=== PATIENT | female | born 1965 | race Caucasian/White ===

== ENCOUNTER 2025-01-10 08:07 | Inpatient (IN) | payer MEDICARE, OTHER ==
[2025-01-10] MEDS ORDERED: IPRATROPIUM-ALBUTEROL 3 ML NEB INHALATION PRN (08:29)
[2025-01-10] MEDS ORDERED: PNEUMONIA PROTOCOL UTILIZED 1 EACH MISC PO PRN (08:35)
[2025-01-10 09:11] LABS: ABG Base Excess 6.9 mmol/L; ABG HCO3 33 mmol/L (21-25); ABG PCO2 53 mmHg (35-45); ABG PH 7.41 (7.35-7.45); ABG TCO2 35 mmol/L (19-24); Allen Test Performed? Yes
[2025-01-10 09:12] LABS: ABG PO2 56 mmHg (83-108)
--- NOTE | 2025-01-10 09:16 | ED ---
General Adult HPI - General Chief complaint: Shortness of Breath Stated complaint: SOB Time Seen by Provider: 01/10/25 08:28 Source: patient, EMS, RN notes reviewed, old records reviewed Mode of arrival: EMS Limitations: no limitations - History of Present Illness Initial comments: Patient is a 59-year-old female who was transferred from [facility] over concern for worsening hypoxic respiratory failure secondary to pneumonia and COPD exacerbation. Apparently patient presented with worsening shortness of breath. Was recently admitted in [place] and intubated. Went home and was doing well until she smoked a cigarette which prompted her COPD to flareup. Is chronically on 3 L nasal cannula of oxygen at home. Workup at the other [facility] does show a properly compensated chronic hypercapnia, leukocytosis that is elevated, and a chest x-ray that showed right middle lobe consolidation concerning for pneumonia. Patient has a chronic large hernia, and CT angiogram was obtained to evaluate for PE which was negative for PE. Patient was holding in the ER when she became slightly more confused. Patient was transitioned to BiPAP and there ICU recommended transfer to a higher level of care for further monitoring. Patient presents mentating well, no confusion, saturating well. We did transition her to her baseline 3 L nasal cannula and she tolerated it well. Has no acute complaints. - Related Data Home Medications Medication Instructions Recorded Confirmed Albuterol Nebulized [Ventolin 2.5 mg INHALATION RT-Q4H PRN 12/30/24 12/30/24 Nebulized] Albuterol Sulfate [Ventolin HFA] 2 puff INHALATION RT-QID PRN 12/30/24 12/30/24 Atorvastatin [Lipitor] 20 mg PO DAILY 12/30/24 12/30/24 Budesonide/Formoterol Fumarate 2 puff INHALATION RT-BID 12/30/24 12/30/24 [Symbicort 160-4.5 Mcg Inhaler] EPINEPHrine (Auto Inject) [Epipen] 0.3 mg IM ONCE PRN 12/30/24 12/30/24 Escitalopram [Lexapro] 10 mg PO DAILY 12/30/24 12/30/24 Escitalopram [Lexapro] 20 mg PO DAILY 12/30/24 12/30/24 Nicotine 21Mg/24Hr Patch [Habitrol] 1 patch TRANSDERM DAILY 12/30/24 12/30/24 Oxybutynin Chloride [oxyBUTYnin 15 mg PO DAILY 12/30/24 12/30/24 chloride ER] Paliperidone Palmitate [Invega 410 mg IM Q84D 12/30/24 12/30/24 Trinza] lamoTRIgine [LaMICtal] 200 mg PO DAILY 12/30/24 12/30/24 metFORMIN HCL 1,000 mg PO BID 12/30/24 12/30/24 Allergies Allergy/AdvReac Type Severity Reaction Status Date / Time carvedilol [From Coreg] Allergy Swelling Verified 12/30/24 11:15 spinach Allergy Swelling Verified 12/30/24 11:15 adhesive tape AdvReac Itching Verified 12/30/24 11:15 enalaprilat [From Vasotec] AdvReac Unknown Verified 12/30/24 11:15 isosorbide AdvReac Unknown Verified 12/30/24 11:15 niacin AdvReac Unknown Verified 12/30/24 11:15 [From Niaspan Extended-Release] Review of Systems ROS Statement: Those systems with pertinent positive or pertinent negative responses have been documented in the HPI. Review of Systems: CONST: Denies fever EYES: Denies blurry vision ENT: Denies nasal congestion C/V: Denies Chest pain RESP: Denies shortness of breath GI: Denies abdominal pain : Denies dysuria SKIN: Denies rash. MSK: Denies joint pain. NEURO: Denies headache ROS Other: All systems not noted in ROS Statement are negative. Past Medical History Past Medical History: Heart Failure, COPD, Diabetes Mellitus, Pneumonia Additional Past Medical History / Comment(s): pt was hospitalized in [place] 12/09/24-12/19/24 and was ventilated due to COPD and PNA. History of Any Multi-Drug Resistant Organisms: None Reported Past Surgical History: No Surgical Hx Reported Past Anesthesia/Blood Transfusion Reactions: No Reported Reaction Additional Past Anesthesia/Blood Transfusion Reaction / Comment(s): pt states she received blood once years ago without issue and had general anesthesia once without issues. Past Psychological History: Depression Smoking Status: Former smoker Past Alcohol Use History: None Reported Past Drug Use History: None Reported General Exam - General Exam Comments Initial Comments: General: Appears in no acute distress. HEAD: Normal with no signs of head trauma. EYES: PERRLA, EOMI, conjunctiva normal, no discharge. ENT: Hearing grossly intact, normal oropharynx. RESPIRATORY: Coarse breath sounds bilaterally with wheezing. No significant increased work of breathing. No hypoxia on baseline 3 L nasal cannula oxygen. C/V: Regular rate and rhythm. S1 and S2 auscultated, no edema, peripheral pulses 2+ and intact throughout ABD: Abd is soft, nontender, nondistended EXT: Normal range of motion, no obvious deformity SKIN: No rashes or lesions observed on exposed skin. NEURO: Alert and oriented x 4. Cranial nerves II-XII intact. No focal sensory or strength deficits. No lethargy. Limitations: no limitations Course Vital Signs 01/10/25 01/10/25 01/10/25 08:09 08:15 09:37 Temperature 97.8 F Pulse Rate 101 H Respiratory 18 24 Rate Blood Pressure 106/70 O2 Sat by Pulse 93 L Oximetry Fraction of 30 Inspired Oxygen (FIO2) 01/10/25 01/10/25 01/10/25 10:02 10:09 10:25 Temperature Pulse Rate 84 86 86 Respiratory 24 Rate Blood Pressure 115/69 O2 Sat by Pulse 98 Oximetry Fraction of Inspired Oxygen (FIO2) 01/10/25 11:45 Temperature Pulse Rate 94 Respiratory 20 Rate Blood Pressure 114/76 O2 Sat by Pulse 95 Oximetry Fraction of Inspired Oxygen (FIO2) Medical Decision Making - Medical Decision Making Was pt. sent in by a medical professional or institution ([facility]enan, FILTER TIP CATCHER, urgent care, hospital, or group home...) When possible be specific @ -Sent from [facility] for evaluation at higher level of care for acute on chronic hypoxic respiratory failure secondary to COPD and what appears to be pneumonia. Did you speak to anyone other than the patient for history (EMS, parent, family, police, friend...)? What history was obtained from this source @ -No Did you review nursing and triage notes (agree or disagree)? Why? @ -I reviewed and agree with nursing and triage notes Were old charts reviewed (outside hosp., previous admission, EMS record, old EKG, old radiological studies, urgent care reports/EKG's, group home records)? Report findings @ -Reviewed charts from [facility] which shows the pneumonia on x-ray interpretation, as well as what appears to be adequate ABGs obtained at the outside facility. Patient eventually was transitioned to BiPAP and transferred here. Differential Diagnosis (chest pain, altered mental status, abdominal pain women, abdominal pain men, vaginal bleeding, weakness, fever, dyspnea, syncope, headache, dizziness, GI bleed, back pain, seizure, CVA, palpatations, mental health, musculoskeletal)? @ -Differential Dyspnea: Coronary syndrome, arrhythmia, tamponade, asthma, COPD, pulmonary embolism, pneumonia, pneumothorax, pulmonary effusion, anaphylaxis, diabetic ketoacidosis, flailed chest, pulmonary contusion, diaphragmatic rupture, anemia, neuromuscular, this is not meant to be an all-inclusive list. EKG interpreted by me (3pts min.). @ -As above X-rays interpreted by me (1pt min.). @ -Chest x-ray shows the right-sided infiltrate with a small right pleural effusion. CT interpreted by me (1pt min.). @ -None done U/S interpreted by me (1pt. min.). @ -None done What testing was considered but not performed or refused? (CT, X-rays, U/S, labs)? Why? @ -None What meds were considered but not given or refused? Why? @ -None Did you discuss the management of the patient with other professionals (professionals i.e. , PA, FILTER TIP CATCHER, lab, RT, psych nurse, social work manager, probe operator, teacher, disciplinary hearing officer, director case)? Give summary @ -I spoke with the admitting provider, Dr. Bowen who accepted the admission. Consult placed to pulmonology. Was smoking cessation discussed for >3mins.? @ -No Was critical care preformed (if so, how long)? @ -No Were there social determinants of health that impacted care today? How? (Homelessness, low income, unemployed, alcoholism, drug addiction, transpo rtation, low edu. Level, literacy, decrease access to med. care, fpc, rehab)? @ -No Was there de-escalation of care discussed even if they declined (Discuss DNR or withdrawal of care, Hospice)? DNR status @ -No What co-morbidities impacted this encounter? (DM, HTN, Smoking, COPD, CAD, Cancer, CVA, ARF, Chemo, Hep., AIDS, mental health diagnosis, sleep apnea, morbid obesity)? @ -COPD on baseline 3 L nasal cannula oxygen. Was patient admitted / discharged? Hospital course, mention meds given and route, prescriptions, significant lab abnormalities, going to OR and other pertinent info. @ -59-year-old female presents emergency department with acute on chronic hypoxic respiratory failure. Transferred from [facility] for worsening mental status and was placed on BiPAP. Patient is mentating well at this time and has been throughout her transfer here. Vitals are within acceptable limits. She was transitioned to 3 L nasal cannula and we will continue to monitor. She has no mental deficits at this time. Will repeat labs, initiate antibiotic therapy for pneumonia that was not started based on chest x-ray read. Will repeat chest x-ray as well. She was in agreement this plan. Will continue with IV steroids, IV antibiotics, IV fluids, breathing treatments. BiPAP as needed. EKG shows no signs of acute ischemia.Patient's labs returned remarkable for leukocytosis of 16. ABG shows an appropriately compensated hypercapnia. Patient is saturating well on her baseline 3 L nasal cannula oxygen. Chest x- ray redemonstrates the [place]. Patient was started on IV fluids as well as antibiotics. Will continue with IV steroids, breathing treatments. Does not meet sepsis criteria. She was in agreement this plan. I spoke with the admitting provider, Dr. Bowen who accepted the admission. Consult placed to pulmonology. Undiagnosed new problem with uncertain prognosis? @ -No Drug Therapy requiring intensive monitoring for toxicity (Heparin, Nitro, Insulin, Cardizem)? @ -No Were any procedures done? @ -No Diagnosis/symptom? @ -Acute on chronic hypoxic respiratory failure likely secondary to COPD exacerbation and pneumonia Acute, or Chronic, or Acute on Chronic? @ -Acute on chronic Uncomplicated (without systemic symptoms) or Complicated (systemic symptoms)? @ -Complicated Side effects of treatment? @ -No Exacerbation, Progression, or Severe Exacerbation? @ -No Poses a threat to life or bodily function? How? (Chest pain, [place], [place], pneumonia, PE, COPD, DKA, ARF, appy, cholecystitis, CVA, Diverticulitis, Homicidal, Suicidal, threat to staff... and all critical care pts) @ -Yes - Lab Data Result diagrams: 01/10/25 09:13 01/10/25 09:13 Lab Results 01/10/25 01/10/25 01/10/25 Range/Units 09:06 09: 09:13 WBC 16.59 H (4.50-10.00) 10*3/uL RBC 4.47 (4.10-5.20) 10*6/uL Hgb 13.7 (12.0-15.0) g/dL Hct 43.2 (37.2-46.3) % MCV 96.6 (80.0-97.0) fL MCH 30.6 (27.0-32.0) pg MCHC 31.7 L (32.0-37.0) g/dL Plt Count 330 (140-440) 10*3/uL MPV 8.1 L (9.5-12.2) fL Immature Gran % (Auto) 0.7 % Neutrophils % 92.7 % Lymphocytes % 4.1 % Monocytes % 2.3 % Eosinophils % 0.0 % Basophils % 0.2 % Immature Gran # 0.11 H (0.00-0.04) 10*3/uL Neutrophils # 15.39 H (1.80-7.70) 10*3/uL Lymphocytes # 0.68 L (0.90-5.00) 10*3/uL Monocytes # 0.38 (0.20-1.00) 10*3/uL Eosinophils # 0.00 L (0.04-0.35) 10*3/uL Basophils # 0.03 (0.00-0.10) 10*3/uL PT 10.0 (10.0-12.5) sec INR 0.9 (<1.2) APTT 23.5 (22.0-30.0) sec Sample Site rbrach ABG pH 7.41 (7.35-7.45) ABG pCO2 53 H (35-45) mmHg ABG pO2 56 L* (83-108) mmHg ABG HCO3 33 H (21-25) mmol/L ABG Total CO2 35 H (19-24) mmol/L ABG O2 Saturation 90.0 L (94-97) % ABG Base Excess 6.9 mmol/L Puneet Test Yes Hemoglobin 13.1 (11.4-16.0) gm/dL FiO2 32 % Sodium (137-145) mmol/L Potassium (3.5-5.1) mmol/L Chloride (98-107) mmol/L Carbon Dioxide (22-30) mmol/L Anion Gap mmol/L BUN (7-17) mg/dL Creatinine (0.52-1.04) mg/dL Est GFR (CKD-EPI)AfAm (>60 ml/min/1.73 sqM) Est GFR (CKD-EPI)NonAf (>60 ml/min/1.73 sqM) Glucose (74-99) mg/dL Plasma Lactic Acid Aaron (0.7-2.0) mmol/L Calcium (8.4-10.2) mg/dL Magnesium (1.6-2.3) mg/dL Total Bilirubin (0.2-1.3) mg/dL AST (14-36) U/L ALT (4-34) U/L Alkaline Phosphatase (38-126) U/L Total Protein (6.3-8.2) g/dL Albumin (3.5-5.0) g/dL 01/10/25 01/10/25 Range/Units 09:13 09:13 WBC (4.50-10.00) 10*3/uL RBC (4.10-5.20) 10*6/uL Hgb (12.0-15.0) g/dL Hct (37.2-46.3) % MCV (80.0-97.0) fL MCH (27.0-32.0) pg MCHC (32.0-37.0) g/dL Plt Count (140-440) 10*3/uL MPV (9.5-12.2) fL Immature Gran % (Auto) % Neutrophils % % Lymphocytes % % Monocytes % % Eosinophils % % Basophils % % Immature Gran # (0.00-0.04) 10*3/uL Neutrophils # (1.80-7.70) 10*3/uL Lymphocytes # (0.90-5.00) 10*3/uL Monocytes # (0.20-1.00) 10*3/uL Eosinophils # (0.04-0.35) 10*3/uL Basophils # (0.00-0.10) 10*3/uL PT (10.0-12.5) sec INR (<1.2) APTT (22.0-30.0) sec Sample Site ABG pH (7.35-7.45) ABG pCO2 (35-45) mmHg ABG pO2 (83-108) mmHg ABG HCO3 (21-25) mmol/L ABG Total CO2 (19-24) mmol/L ABG O2 Saturation (94-97) % ABG Base Excess mmol/L Puneet Test Hemoglobin (11.4-16.0) gm/dL FiO2 % Sodium 139 (137-145) mmol/L Potassium 4.6 (3.5-5.1) mmol/L Chloride 99 (98-107) mmol/L Carbon Dioxide 33 H (22-30) mmol/L Anion Gap 7 mmol/L BUN 12 (7-17) mg/dL Creatinine 0.52 (0.52-1.04) mg/dL Est GFR (CKD-EPI)AfAm >90 (>60 ml/min/1.73 sqM) Est GFR (CKD-EPI)NonAf >90 (>60 ml/min/1.73 sqM) Glucose 209 H (74-99) mg/dL Plasma Lactic Acid Aaron 1.1 (0.7-2.0) mmol/L Calcium 9.4 (8.4-10.2) mg/dL Magnesium 2.2 (1.6-2.3) mg/dL Total Bilirubin 0.3 (0.2-1.3) mg/dL AST 14 (14-36) U/L ALT 17 (4-34) U/L Alkaline Phosphatase 95 (38-126) U/L Total Protein 7.3 (6.3-8.2) g/dL Albumin 4.1 (3.5-5.0) g/dL - EKG Data -: EKG Interpreted by Me EKG Comments: 12-lead Electrocardiogram Interpretation Note EKG was reviewed and interpreted by myself. 12-lead ECG performed at 0854 is interpreted by me as revealing normal sinus rhythm at a rate of 87 beats per minute. Left axis deviation. WA interval is 179 ms, QRS durations 105 ms, QTc is 436 ms.. There were no ST or T wave abnormalities to suggest myocardial ischemia or injury. R wave progression across the precordium was satisfactory. By my interpretation this EKG is non-diagnostic for acute ischemia. Disposition Clinical Impression: COPD (chronic obstructive pulmonary disease), Pneumonia, Hypoxic respiratory failure Disposition: ADMITTED IP TO THIS HOSP Condition: Stable Time of Disposition: 10:40
[2025-01-10] MEDS: methylPREDNISolone SOD SUCCI 40 MG/ML 1 ML VIAL IV SCH (09:21)
[2025-01-10] MEDS: LACTATED RINGERS 1,000 ML IV SCH (09:22)
[2025-01-10] MEDS: PIPERACILLIN-TAZOBACTAM 3.375 GM in SODIUM CHLORIDE 0.9% 100 ML IVPB STA (09:22)
[2025-01-10 09:29] LABS: Basophils # (A) 0.03 10*3/uL (0.00-0.10); Basophils % (A) 0.2 %; HCT 43.2 % (37.2-46.3); HGB 13.7 g/dL (12.0-15.0); Lymphocytes # (A) 0.68 10*3/uL (0.90-5.00); Lymphocytes % (A) 4.1 %; MCH 30.6 pg (27.0-32.0); MCHC 31.7 g/dL (32.0-37.0); MCV 96.6 fL (80.0-97.0); Mean Platelet Volume 8.1 fL (9.5-12.2); Monocytes # (A) 0.38 10*3/uL (0.20-1.00); Monocytes % (A) 2.3 %; Neutrophils # (A) 15.39 10*3/uL (1.80-7.70); Neutrophils % (A) 92.7 %; Platelet Count 330 10*3/uL (140-440); RBC 4.47 10*6/uL (4.10-5.20); RDW 14.5 % (11.5-14.5); WBC 16.59 10*3/uL (4.50-10.00)
[2025-01-10 09:35] LABS: INR 0.9 (<1.2); Partial Thromboplastin Time 23.5 sec (22.0-30.0)
[2025-01-10] MEDS: SODIUM CHLORIDE 0.9% 1,000 ML IV SCH (09:35)
[2025-01-10 09:38] LABS: ALT 17 U/L (4-34); AST 14 U/L (14-36); African American GFR (CKD) >90 (>60 ml/min/1.73 sqM); Albumin 4.1 g/dL (3.5-5.0); Alkaline Phosphatase 95 U/L (38-126); Anion Gap 7 mmol/L; Blood Urea Nitrogen 12 mg/dL (7-17); Calcium 9.4 mg/dL (8.4-10.2); Carbon Dioxide 33 mmol/L (22-30); Chloride 99 mmol/L (98-107); Glucose 209 mg/dL (74-99); Magnesium 2.2 mg/dL (1.6-2.3); Non-African American GFR(CKD) >90 (>60 ml/min/1.73 sqM); Potassium 4.6 mmol/L (3.5-5.1); Sodium 139 mmol/L (137-145); Total Bilirubin 0.3 mg/dL (0.2-1.3); Total Protein 7.3 g/dL (6.3-8.2)
[2025-01-10] MEDS: IPRATROPIUM-ALBUTEROL 3 ML NEB INHALATION STA (10:00)
--- NOTE | 2025-01-10 10:04 | XR ---
EXAMINATION TYPE: XR chest 1V portable DATE OF EXAM: 01/10/2025 9:51 AM COMPARISON: None. CLINICAL INDICATION: Female, 59 years old with history of coreen, TECHNIQUE: XR chest 1V portable view(s) obtained. FINDINGS: The heart size is normal. The pulmonary vasculature is normal. Right renal lobe infiltrate is present. Correlate for pneumonia. Follow-up is recommended minimal rig ht pleural effusion is likely present. IMPRESSION: 1. Right renal lobe infiltrate. Correlate for pneumonia. 2. Small right pleural effusion [facility], , 01/10/2025 10:01 AM
[2025-01-10] MEDS: IPRATROPIUM-ALBUTEROL 3 ML NEB INHALATION SCH (10:09)
[2025-01-10] MEDS: AZITHROMYCIN 500 MG in SODIUM CHLORIDE 0.9% 250 ML IVPB STA (10:20)
[2025-01-10] MEDS ORDERED: NALOXONE 0.4 MG/ML 1 ML VIAL IV PRN (10:43)
[2025-01-10] MEDS ORDERED: ONDANSETRON 4 MG/2 ML VIAL IVP PRN (10:43)
[2025-01-10] MEDS: PIPERACILLIN-TAZOBACTAM 3.375 GM in SODIUM CHLORIDE 0.9% 100 ML IVPB SCH (16:49)
[2025-01-10 19:36] LABS: Glucose,Whole Blood 296 mg/dL (70-110)
[2025-01-10 20:00] LABS: Glucose,Whole Blood 291 mg/dL (70-110)
--- NOTE | 2025-01-10 21:15 | P.HPIM ---
History of Present Illness H&P Date: 01/10/25 Chief Complaint: Short of breath This is a pleasant 59-year-old patient who follows with Dr. Pérez. Chronic medical conditions include CHF, COPD, diabetes, hyperlipidemia, hypertension, depression. Home oxygen 3 L, recurrent angioedema Patient was short time and stopped smoking. Recently discharged from hospital about 10 days ago. Patient went back to start smoking. Yesterday became increasingly short of breath. Wheezing. No chills. Vivian tired. Had gone to see her son. He said he looks she looks miserable. They checked a home pulse ox showing 62%. Patient sent down to [facility] and from that she was sent down here. Patient was recently admitted to [facility] where she was intubated. Does have 3 uses oxygen at home. At [facility] showed she was in hypercapnia. X-ray also suggesting pneumonia. CT angiogram was negative for PE. As she became a bit confused she was put on a BiPAP. Review of systems: GEN.: Tired EYES: None HEENT: [As above NECK: None RESPIRATORY: As above CARDIOVASCULAR: None GASTROINTESTINAL: None GENITOURINARY: None MUSCULOSKELETAL: None LYMPHATICS: None HEMATOLOGICAL: None PSYCHIATRY: Bit anxious NEUROLOGICAL: None Social history: Lives alone. Patient smoked for about 45 years Physical examination: VITAL SIGNS: 97.8, 78, 20, 121 x 74, 94% on 3 to GENERAL: BMI 26.1, sitting bed, a bit short of breath EYES: Pupils equal. Conjunctiva jeni l. HEENT: External appearance of nose and ears normal, oral cavity grossly normal. No teeth NECK: JVD not raised; masses not palpable. HEART: First and second heart sounds are normal; no edema. LUNGS: Respiratory rate increased, diminished breath sound, not able to speak in full sentence ABDOMEN: Soft, nontender, liver spleen not palpable, no masses palpable. PSYCH: Alert and oriented x3; mood and affect anxious MUSCULOSKELETAL:No Clubbing/cyanosis;muscles-grossly intact NEUROLOGICAL: Cranial nerves grossly intact; no facial asymmetry, power and sensation grossly intact. LYMPHATICS: No lymph nodes palpable in the axilla and neck INVESTIGATIONS, reviewed in the clinical context: January 10: White count 16.5 hemoglobin 13.7 platelets 330 sodium 139 potassium 4.6 creatinine 0.52 blood glucose 209 ABG: [id number] PO256 pH 7.41 Chest x-ray film personally reviewed by me-possible right lower lobe infiltrate EKG tracing personally reviewed by me-normal sinus rhythm Assessment plan: - Acute COPD exacerbation in a current smoker, causing hypoxia and hypercapnia DuoNeb. Solu-Medrol. Oxygen - Acute hypoxic hypercapnic respiratory failure from COPD exacerbation Patient initially was on a BiPAP. Now down to 3 L. - Right lower lobe pneumonia suspect gram-negative organism. Patient was recently in the hospital intubated IV Zosyn -History of recurrent angioedema -Diabetes mellitus type 2 on oral hypoglycemic, uncontrolled with hyperglycemia secondary steroids Metformin 1000 mg twice daily. Follow Accu-Cheks with sliding scale - Chronic urine incontinence Oxybutynin 15 mg a day - Hyperlipidemia Lipitor 20 mg a day - Chronic nicotine dependence cigarette smoker Nicotine patch - Depression Lamictal. Invega, Lexapro, - Full code Care was discussed with the patient. Past Medical History Past Medical History: Heart Failure, COPD, Diabetes Mellitus, Pneumonia Additional Past Medical History / Comment(s): pt was hospitalized in [place] 07/24-12/19/24 and was ventilated due to COPD and PNA. History of Any Multi-Drug Resistant Organisms: None Reported Past Surgical History: No Surgical Hx Reported Past Anesthesia/Blood Transfusion Reactions: No Reported Reaction Additional Past Anesthesia/Blood Transfusion Reaction / Comment(s): pt states she received blood once years ago without issue and had general anesthesia once without issues. Past Psychological History: Depression Smoking Status: Former smoker Past Alcohol Use History: None Reported Past Drug Use History: None Reported Medications and Allergies Home Medications Medication Instructions Recorded Confirmed Type Albuterol Nebulized [Ventolin 2.5 mg INHALATION RT-Q4H PRN 12/30/24 01/10/25 History Nebulized] Albuterol Sulfate [Ventolin HFA] 2 puff INHALATION RT-QID PRN 12/30/24 01/10/25 History Atorvastatin [Lipitor] 20 mg PO DAILY 12/30/24 01/10/25 History Budesonide/Formoterol Fumarate 2 puff INHALATION RT-BID 12/30/24 01/10/25 History [Symbicort 160-4.5 Mcg Inhaler] EPINEPHrine (Auto Inject) [Epipen] 0.3 mg IM ONCE PRN 12/30/24 01/10/25 History Escitalopram [Lexapro] 10 mg PO DAILY 12/30/24 01/10/25 History Escitalopram [Lexapro] 20 mg PO DAILY 12/30/24 01/10/25 History Nicotine 21Mg/24Hr Patch [Habitrol] 1 patch TRANSDERM DAILY 12/30/24 01/10/25 History Oxybutynin Chloride [oxyBUTYnin 15 mg PO DAILY 12/30/24 01/10/25 History chloride ER] Paliperidone Palmitate [Invega 410 mg IM Q84D 12/30/24 01/10/25 History Trinza] lamoTRIgine [LaMICtal] 200 mg PO DAILY 12/30/24 01/10/25 History metFORMIN HCL 1,000 mg PO BID 12/30/24 01/10/25 History Doxycycline Monohydrate 100 mg PO BID 01/10/25 01/10/25 History amLODIPine [Norvasc] 5 mg PO DIRECTED 01/10/25 01/10/25 History Allergies Allergy/AdvReac Type Severity Reaction Status Date / Time carvedilol [From Coreg] Allergy Swelling Verified 01/10/25 15:39 spinach Allergy Swelling Verified 01/10/25 15:39 adhesive tape AdvReac Itching Verified 01/10/25 15:39 enalaprilat [From Vasotec] AdvReac Unknown Verified 01/10/25 15:39 isosorbide AdvReac Unknown Verified 01/10/25 15:39 niacin AdvReac Unknown Verified 01/10/25 15:39 [From Niaspan Extended-Release] Physical Exam Vitals: Vital Signs Temp Pulse Resp BP Pulse Ox FiO2 01/10/25 18:00 97.8 F 78 20 121/74 94 L 01/10/25 15:40 94 01/10/25 15:29 98 01/10/25 13:19 92 20 140/86 96 01/10/25 11:45 94 20 114/76 95 01/10/25 10:25 86 24 115/69 98 01/10/25 10:09 86 01/10/25 10:02 84 01/10/25 09:37 30 01/10/25 08:15 24 01/10/25 08:09 97.8 F 101 H 18 106/70 93 L Intake and Output 01/10/25 01/10/25 01/10/25 06:59 14:59 22:59 Other: Weight 62.596 kg Results CBC & Chem 7: 01/10/25 09:13 01/10/25 09:13 Labs: Abnormal Lab Results - Last 24 Hours (Table) 01/10/25 01/10/25 01/10/25 Range/Units 09:06 09:13 09:13 WBC 16.59 H (4.50-10.00) 10*3/uL MCHC 31.7 L (32.0-37.0) g/dL MPV 8.1 L (9.5-12.2) fL Immature Gran # 0.11 H (0.00-0.04) 10*3/uL Neutrophils # 15.39 H (1.80-7.70) 10*3/uL Lymphocytes # 0.68 L (0.90-5.00) 10*3/uL Eosinophils # 0.00 L (0.04-0.35) 10*3/uL ABG pCO2 53 H (35-45) mmHg ABG pO2 56 L* (83-108) mmHg ABG HCO3 33 H (21-25) mmol/L ABG Total CO2 35 H (19-24) mmol/L ABG O2 Saturation 90.0 L (94-97) % Carbon Dioxide 33 H (22-30) mmol/L Glucose 209 H (74-99) mg/dL POC Glucose (mg/dL) (70-110) mg/dL 01/10/25 01/10/25 Range/Units 19:34 19:58 WBC (4.50-10.00) 10*3/uL MCHC (32.0-37.0) g/dL MPV (9.5-12.2) fL Immature Gran # (0.00-0.04) 10*3/uL Neutrophils # (1.80-7.70) 10*3/uL Lymphocytes # (0.90-5.00) 10*3/uL Eosinophils # (0.04-0.35) 10*3/uL ABG pCO2 (35-45) mmHg ABG pO2 (83-108) mmHg ABG HCO3 (21-25) mmol/L ABG Total CO2 (19-24) mmol/L ABG O2 Saturation (94-97) % Carbon Dioxide (22-30) mmol/L Glucose (74-99) mg/dL POC Glucose (mg/dL) 296 H 291 H (70-110) mg/dL
[2025-01-10] MEDS: BUDESONIDE 1 MG/2 ML NEBU INHALATION SCH (21:26)
[2025-01-10] MEDS: FORMOTEROL FUMARATE 20 MCG/2 ML NEBU INHALATION SCH (21:26)
[2025-01-10] MEDS: metFORMIN 500 MG TAB PO SCH (21:37)
[2025-01-11 05:50] LABS: Glucose,Whole Blood 203 mg/dL (70-110)
--- NOTE | 2025-01-11 07:31 | XR ---
EXAMINATION TYPE: XR chest 2V DATE OF EXAM: 01/11/2025 6:56 AM COMPARISON: Chest radiographs from 01/10/2025 CLINICAL INDICATION: Female, 59 years old with history of pneumonia; [facility] TECHNIQUE: XR chest 2V Frontal and lateral views of the chest. FINDINGS: Lungs/Pleura: Right lower lung airspace opacity/consolidation. There is no evidence of pleural effusi on, left focal consolidation, or pneumothorax. Pulmonary vascularity: Unremarkable. Heart/mediastinum: Cardiomediastinal silhouette is unremarkable. Musculoskeletal: No acute osseous pathology. IMPRESSION: Right lower lobe airspace opacities/consolidation [facility], , 01/11/2025 7:29 AM
[2025-01-11] MEDS: lamoTRIgine 100 MG TAB PO SCH (07:58)
[2025-01-11] MEDS: AZITHROMYCIN 500 MG in SODIUM CHLORIDE 0.9% 250 ML IVPB SCH (07:58)
[2025-01-11] MEDS: NICOTINE 21MG/24HR PATCH TRANSDERM SCH (07:58)
[2025-01-11] MEDS: ESCITALOPRAM 20 MG TAB PO SCH (07:58)
[2025-01-11] MEDS: ESCITALOPRAM 10 MG TAB PO SCH (07:59)
[2025-01-11] MEDS: ENOXAPARIN 40 MG/0.4 ML SYRINGE SQ SCH (07:59)
[2025-01-11] MEDS: OXYBUTYNIN 15 MG TAB.ER.24 PO SCH (07:59)
[2025-01-11] MEDS: ATORVASTATIN 20 MG TAB PO SCH (07:59)
[2025-01-11 08:31] LABS: Basophils # (A) 0.02 10*3/uL (0.00-0.10); Basophils % (A) 0.1 %; HCT 39.6 % (37.2-46.3); HGB 12.6 g/dL (12.0-15.0); Lymphocytes # (A) 1.25 10*3/uL (0.90-5.00); Lymphocytes % (A) 8.1 %; MCH 31.3 pg (27.0-32.0); MCHC 31.8 g/dL (32.0-37.0); MCV 98.5 fL (80.0-97.0); Mean Platelet Volume 8.2 fL (9.5-12.2); Monocytes # (A) 0.73 10*3/uL (0.20-1.00); Monocytes % (A) 4.7 %; Neutrophils # (A) 13.35 10*3/uL (1.80-7.70); Neutrophils % (A) 86.1 %; Platelet Count 304 10*3/uL (140-440); RBC 4.02 10*6/uL (4.10-5.20); RDW 14.4 % (11.5-14.5)
[2025-01-11 08:49] LABS: ALT 15 U/L (4-34); AST 14 U/L (14-36); African American GFR (CKD) >90 (>60 ml/min/1.73 sqM); Albumin 3.6 g/dL (3.5-5.0); Alkaline Phosphatase 62 U/L (38-126); Anion Gap 7 mmol/L; Blood Urea Nitrogen 14 mg/dL (7-17); Carbon Dioxide 34 mmol/L (22-30); Chloride 98 mmol/L (98-107); Glucose 179 mg/dL (74-99); Non-African American GFR(CKD) >90 (>60 ml/min/1.73 sqM); Potassium 4.5 mmol/L (3.5-5.1); Sodium 139 mmol/L (137-145); Total Bilirubin 0.3 mg/dL (0.2-1.3); Total Protein 6.5 g/dL (6.3-8.2)
[2025-01-11] MEDS: IPRATROPIUM-ALBUTEROL 3 ML NEB INHALATION SCH (09:08)
[2025-01-11] MEDS ORDERED: RX INFO: IV CONTRAST WAS GIVEN 1 EACH MISC MISCELLANE PRN (10:17)
--- NOTE | 2025-01-11 12:12 | CT ---
EXAMINATION TYPE: CT chest w con DATE OF EXAM: 01/11/2025 11:54 AM COMPARISON: Chest radiograph CT thorax 01/10/2025 CLINICAL INDICATION: Female, 59 years old with history of Abnormal CXR; PHH, abnormal cxr TECHNIQUE: Multiple axial images were obtained through the chest. Sagittal and coronal reformats were created for review. MIP was performed on a separate workstation. Contrast used:100 mL of Isovue 300 with IV Contrast (None if empty) Oral contrast used: (None if empty) CT DLP: 260.3 mGycm, Automated exposure control for dose reduction was used. FINDINGS: LUNGS/ PLEURA: Elevated right diaphragm with hernia extending anteriorly along the anterior abdominal wall. No airspace consolidation. Moderate centrilobular emphysema changes in the lung apices. No foc al consolidation, pneumothorax or pleural effusion. AIRWAY: Patent and unremarkable. HEART: Size within normal limits. No significant coronary artery calcifications. MEDIASTINUM: No gross evidence of adenopathy. VASCULATURE: No aortic aneurysm. MUSCULOSKELETAL: Mild disc degeneration changes are present throughout the thoracolumbar spine second gomez to osteophyte formation and facet joint arthropathy. SOFT TISSUES/LYMPH NODES: Unremarkable. LOWER NECK: No significant findings. UPPER ABDOMEN: Large hernia containing loops of colon that extends up to the anterior upper abdomen i nto the mediastinum to the right of the right epicardial fat and into the right chest. Scattered hepa tic probable cysts. IMPRESSION: 1. No change from CT one day prior. Large hernia containing loops of colon that extends up to the an terior upper abdomen into the mediastinum to the right of the right epicardial fat and into the right chest. 2. No evidence for airspace disease. 3. Moderate emphysema changes. [facility], , 01/11/2025 12:10 PM
--- NOTE | 2025-01-11 13:59 | P.CNPUL ---
History of Present Illness Consult date: 01/11/25 Requesting physician: Jaiden Bowen Reason for consult: COPD Chief complaint: Shortness of breath History of present illness: This is a 59-year-old female, known history of COPD, congestive heart failure, type 2 diabetes, hypertension, depression, on home O2 as liters per minute, patient had recent evaluation in the ER for angioedema. Patient is a smoker, presented to the ER last night with worsening symptoms of shortness of breath, cough, and wheezing. Chest x-ray raised the possibility of pneumonia, however after reviewing the chest x-ray, it seems to me that there is a cavitary like lesion, hence I recommended a CT of the chest for further evaluation of that right lower lobe. Findings on the CT of the chest ruled out pneumonia, there is clearly evidence of large hernia containing loops of colon that extends up to the anterior upper abdomen into the mediastinum to the right of the right epicardial fat and into the right chest. These are findings of hernia not findings of pneumonia. And not findings of lung abscess. Nonetheless patient is being treated for symptoms of COPD exacerbation. Apparently patient was recently in [place] and she had an episode of acute exacerbation of COPD required intubation and mechanical ventilation. When she was seen yesterday at [facility], her chest x-ray raised the possibility of pneumonia hence she was transferred to [facility]. Initially she was on BiPAP, when I saw the patient she was on nasal cannula and did not seem to be in distress. Review of Systems REVIEW OF SYSTEMS: CONSTITUTIONAL: No fever no chills no weight loss EYES: Negative. ENT: Negative. CARDIAC: Negative. PULMONARY: Cough wheezing shortness of breath GI: Negative. GENITOURINARY: Negative. MUSCULOSKELETAL: Negative. SKIN: Negative. NEUROPSYCH: Negative. ENDOCRINE: Negative. HEMATOLOGIC: Negative. Past Medical History Past Medical History: Heart Failure, COPD, Diabetes Mellitus, Pneumonia Additional Past Medical History / Comment(s): pt was hospitalized in [place] 12/09/24-12/19/24 and was ventilated due to COPD and PNA. History of Any Multi-Drug Resistant Organisms: None Reported Past Surgical History: No Surgical Hx Reported Past Anesthesia/Blood Transfusion Reactions: No Reported Reaction Additional Past Anesthesia/Blood Transfusion Reaction / Comment(s): pt states she received blood once years ago without issue and had general anesthesia once without issues. Past Psychological History: Depression Smoking Status: Former smoker Past Alcohol Use History: None Reported Past Drug Use History: None Reported Medications and Allergies Home Medications Medication Instructions Recorded Confirmed Type Albuterol Nebulized [Ventolin 2.5 mg INHALATION RT-Q4H PRN 12/30/24 01/10/25 History Nebulized] Albuterol Sulfate [Ventolin HFA] 2 puff INHALATION RT-QID PRN 12/30/24 01/10/25 History Atorvastatin [Lipitor] 20 mg PO DAILY 12/30/24 01/10/25 History Budesonide/Formoterol Fumarate 2 puff INHALATION RT-BID 12/30/24 01/10/25 History [Symbicort 160-4.5 Mcg Inhaler] EPINEPHrine (Auto Inject) [Epipen] 0.3 mg IM ONCE PRN 12/30/24 01/10/25 History Escitalopram [Lexapro] 10 mg PO DAILY 12/30/24 01/10/25 History Escitalopram [Lexapro] 20 mg PO DAILY 12/30/24 01/10/25 History Nicotine 21Mg/24Hr Patch [Habitrol] 1 patch TRANSDERM DAILY 12/30/24 01/10/25 H istory Oxybutynin Chloride [oxyBUTYnin 15 mg PO DAILY 12/30/24 01/10/25 History chloride ER] Paliperidone Palmitate [Invega 410 mg IM Q84D 12/30/24 01/10/25 History Trinza] lamoTRIgine [LaMICtal] 200 mg PO DAILY 12/30/24 01/10/25 History metFORMIN HCL 1,000 mg PO BID 12/30/24 01/10/25 History Doxycycline Monohydrate 100 mg PO BID 01/10/25 01/10/25 History amLODIPine [Norvasc] 5 mg PO DIRECTED 01/10/25 01/10/25 History Allergies Allergy/AdvReac Type Severity Reaction Status Date / Time carvedilol [From Coreg] Allergy Swelling Verified 01/10/25 15:39 spinach Allergy Swelling Verified 01/10/25 15:39 adhesive tape AdvReac Itching Verified 01/10/25 15:39 enalaprilat [From Vasotec] AdvReac Unknown Verified 01/10/25 15:39 isosorbide AdvReac Unknown Verified 01/10/25 15:39 niacin AdvReac Unknown Verified 01/10/25 15:39 [From Niaspan Extended-Release] Physical Exam Vitals: Vital Signs Temp Pulse Pulse Resp BP BP Pulse Ox 01/11/25 12:38 102 H 01/11/25 12:21 106 H 01/11/25 12:17 98.4 F 106 H 20 111/66 96 01/11/25 09:41 102 H 01/11/25 09:23 102 H 01/11/25 09:21 100 01/11/25 09:09 102 H 97 01/11/25 07:43 97.9 F 85 18 145/80 94 L 01/11/25 04:04 97.9 F 77 18 116/54 97 01/11/25 00:40 97.7 F 84 18 116/67 98 01/10/25 21:10 97.7 F 81 18 146/89 97 01/10/25 18:00 97.8 F 78 20 121/74 94 L 01/10/25 15:40 94 01/10/25 15:29 98 Intake and Output 01/10/25 01/11/25 01/11/25 22:59 06:59 14:59 Intake Total 260 Output Total 400 Balance -140 Intake: IV 20 Invasive Line 2 10 Invasive Line 3 10 Oral 240 Output: Urine 400 Other: Voiding Method Bedside Commode Bedside Commode Bedside Commode # Voids 2 1 # Bowel Movements 1 Weight 62.596 kg 69 kg General: Reveals a 59-year-old female in no distress Skin: Skin is warm and dry and no rashes or lesions are noted. Eye: Pupils are equal, round and reactive to light, extra-ocular movements are intact; there is normal conjunctiva bilaterally. Ears, nose, mouth and throat: There are moist mucous membranes and no oral lesions. Neck: The neck is supple, there is no tenderness or JVD. Cardiovascular: There is a regular rate and rhythm. No murmur, rub or gallop is appreciated. Respiratory: Wheezing on forced expiratory maneuver, diminished breath sounds at the right base Gastrointestinal: Soft, non-distended, non-tender abdomen without masses or organomegaly noted. There is no rebound or guarding present. Bowel sounds are unremarkable. Back: There is no tenderness to palpation in the midline. There is no obvious deformity. Musculoskeletal: Normal ROM, no tenderness, There is no pedal edema. There is no calf tenderness or swelling. No cords were appreciated. Neurological: CN II-XII intact, Cranial nerves III through XII are intact. There are no obvious motor or sensory deficits. Coordination appears grossly intact. Speech is normal. Psychiatric: Cooperative, appropriate mood & affect, normal judgment. Results - Laboratory Findings CBC and BMP: 01/11/25 08:19 01/11/25 08:19 ABG ABG pH 7.41 (7.35-7.45) 01/10/25 09:06 ABG pCO2 53 mmHg (35-45) H 01/10/25 09:06 ABG pO2 56 mmHg (83-108) L* 01/10/25 09:06 ABG O2 Saturation 90.0 % (94-97) L 01/10/25 09:06 PT/INR, D-dimer PT 10.0 sec (10.0-12.5) 01/10/25 09:13 INR 0.9 (<1.2) 01/10/25 09:13 Abnormal lab findings: Abnormal Labs 01/10/25 01/10/25 01/10/25 09:06 09:13 09:13 WBC 16.59 H RBC MCV MCHC 31.7 L MPV 8.1 L Immature Gran # 0.11 H Neutrophils # 15.39 H Lymphocytes # 0.68 L Eosinophils # 0.00 L ABG pCO2 53 H ABG pO2 56 L* ABG HCO3 33 H ABG Total CO2 35 H ABG O2 Saturation 90.0 L Carbon Dioxide 33 H Glucose 209 H POC Glucose (mg/dL) 01/10/25 01/10/25 01/11/25 19:34 19:58 05:48 WBC RBC MCV MCHC MPV Immature Gran # Neutrophils # Lymphocytes # Eosinophils # ABG pCO2 ABG pO2 ABG HCO3 ABG Total CO2 ABG O2 Saturation Carbon Dioxide Glucose POC Glucose (mg/dL) 296 H 291 H 203 H 01/11/25 01/11/25 08:19 08:19 WBC 15.50 H RBC 4.02 L MCV 98.5 H MCHC 31.8 L MPV 8.2 L Immature Gran # 0.15 H Neutrophils # 13.35 H Lymphocytes # Eosinophils # 0.00 L ABG pCO2 ABG pO2 ABG HCO3 ABG Total CO2 ABG O2 Saturation Carbon Dioxide 34 H Glucose 179 H POC Glucose (mg/dL) - Diagnostic Findings CT scan - chest: image reviewed (As noted in HPI) Assessment and Plan Assessment: Impression: Acute hypoxic respiratory failure Acute on chronic hypoxic and hypercapnic respiratory failure No evidence of pneumonia, patient has hiatal hernia as noted on CT of the chest 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 Continue methylprednisone Resume home meds Continue antibiotics for now for her COPD exacerbation but again the patient does not have clear-cut evidence of pneumonia Continue oxygen and titrate accordingly Counseled regarding smoking cessation Will continue to follow Time with Patient: Greater than 30
--- NOTE | 2025-01-11 18:07 | P.PN ---
Progress Note - Text Progress Note Date: 01/11/25 Chief Complaint: Short of breath This is a pleasant 59-year-old patient who follows with Dr. Pérez. Chronic medical conditions include CHF, COPD, diabetes, hyperlipidemia, hypertension, depression. Home oxygen 3 L, recurrent angioedema Patient was short time and stopped smoking. Recently discharged from hospital about 10 days ago. Patient went back to start smoking. Yesterday became increasingly short of breath. Wheezing. No chills. [place] tired. Had gone to see her son. He said he looks she looks miserable. They checked a home pulse ox showing 62%. Patient sent down to [facility] and from that she was sent down here. Patient was recently admitted to [facility] where she was intubated. Does have 3 uses oxygen at home. At [facility] showed she was in hypercapnia. X-ray also suggesting pneumonia. CT angiogram was negative for PE. As she became a bit confused she was put on a BiPAP. January 11: Some improvement in shortness of breath. Congested cough. On 3 to his nasal cannula. Had 100% for lunch. Told to sit up in the chair. Incentive spirometry. No pneumonia. Only acute bronchitis. Stop Zosyn Active Medications Acetaminophen (Acetaminophen Tab 325 Mg Tab) 650 mg PO Q6HR PRN PRN Reason: Mild Pain or Fever > 100.5 Albuterol/Ipratropium (Ipratropium-Albuterol 3 Ml Neb) 3 ml INHALATION RT-Q2H PRN PRN Reason: Shortness Of Breath Or Wheezing Albuterol/Ipratropium (Ipratropium-Albuterol 3 Ml Neb) 3 ml INHALATION RT-QID [facility] Last Admin: 01/11/25 16:46 Dose: 3 ml Atorvastatin Calcium (Atorvastatin 20 Mg Tab) 20 mg PO DAILY [facility] Last Admin: 01/11/25 07:59 Dose: 20 mg Budesonide (Budesonide 1 Mg/2 Ml Nebu) 1 mg INHALATION RT-BID [facility] Last Admin: 01/11/25 09:08 Dose: 1 mg Enoxaparin Sodium (Enoxaparin 40 Mg/0.4 Ml Syringe) 40 mg SQ DAILY [facility] Last Admin: 01/11/25 07:59 Dose: 40 mg Epinephrine HCl (Epinephrine 1 Mg/Ml 1 Ml Vial) 0.3 mg IM ONCE PRN PRN Reason: Anaphylaxis Escitalopram Oxalate (Escitalopram 10 Mg Tab) 10 mg PO DAILY [facility] Last Admin: 01/11/25 07:59 Dose: 10 mg Escitalopram Oxalate (Escitalopram 20 Mg Tab) 20 mg PO DAILY [facility] Last Admin: 01/11/25 07:58 Dose: 20 mg Formoterol Fumarate (Formoterol Fumarate 20 Mcg/2 Ml Nebu) 20 mcg INHALATION RT-BID [facility] Last Admin: 01/11/25 09:08 Dose: 20 mcg Azithromycin 500 mg/ Sodium (Chloride) 250 mls @ 250 mls/hr IVPB DAILY [facility]; Protocol Stop: 01/12/25 09:59 Last Admin: 01/11/25 07:58 Dose: 250 mls/hr Piperacillin Sod/Tazobactam (Sod 3.375 gm/ Sodium Chloride) 100 mls @ 25 mls/hr IVPB Q8HR [facility]; Protocol Stop: 01/15/25 15:59 Last Admin: 01/11/25 16:38 Dose: 25 mls/hr Lactated Ringer's (Lactated Ringers) 1,000 mls @ 130 mls/hr IV .Q7H42M [facility] Last Admin: 01/11/25 16:38 Dose: Not Given Lamotrigine (Lamotrigine 100 Mg Tab) 200 mg PO DAILY [facility] Last Admin: 01/11/25 07:58 Dose: 200 mg Metformin HCl (Metformin 500 Mg Tab) 1,000 mg PO BID-W/MEALS [facility] Last Admin: 01/11/25 16:38 Dose: 1,000 mg Methylprednisolone Sodium Succinate (Methylprednisolone Sod Succi 40 Mg/Ml 1 Ml Vial) 40 mg IV Q8HR [facility] Last Admin: 01/11/25 16:38 Dose: 40 mg Miscellaneous Information (Pneumonia Protocol Utilized 1 Each Misc) 1 each PO ONCE PRN PRN Reason: Per Protocol Miscellaneous Information (Rx Info: Iv Contrast Was Given 1 Each Misc) 1 each MISCELLANE DAILY PRN PRN Reason: Per Protocol Stop: 01/13/25 10:17 Naloxone HCl (Naloxone 0.4 Mg/Ml 1 Ml Vial) 0.2 mg IV Q2M PRN PRN Reason: Opioid Reversal Nicotine (Nicotine 21mg/24hr Patch) 1 patch TRANSDERM DAILY [facility] Last Admin: 01/11/25 07:58 Dose: 1 patch Ondansetron HCl (Ondansetron 4 Mg/2 Ml Vial) 4 mg IVP Q8HR PRN PRN Reason: Nausea And Vomiting Oxybutynin Chloride (Oxybutynin 15 Mg Tab.Er.24) 15 mg PO DAILY [facility] Last Admin: 01/11/25 07:59 Dose: 15 mg Social history: Lives alone. Patient smoked for about 45 years Physical examination: VITAL SIGNS: 98.4, 106, 20, 111 x 66, 96% 3 GENERAL: BMI 26.1, sitting bed, a bit short of breath EYES: Pupils equal. Conjunctiva jeni l. HEENT: External appearance of nose and ears normal, oral cavity grossly normal. No teeth NECK: JVD not raised; masses not palpable. HEART: First and second heart sounds are normal; no edema. LUNGS: Respiratory rate increased, diminished breath sound, ABDOMEN: Soft, nontender, liver spleen not palpable, no masses palpable. PSYCH: Alert and oriented x3; mood and affect anxious MUSCULOSKELETAL:No Clubbing/cyanosis;muscles-grossly intact INVESTIGATIONS, reviewed in the clinical context: CT chest: Large hernia containing loops of colon that extends up to the anterior upper abdomen into the mediastinum to the right of the right epicardial fat and into the right chest. No evidence of airspace disease. January 11: White count 15.5 hemoglobin 12.6 platelets 304 creatinine 0.54 procalcitonin less than 0.20 January 10: White count 16.5 hemoglobin 13.7 platelets 330 sodium 139 potassium 4.6 creatinine 0.52 blood glucose 209 ABG: [id number] pH 7.41 Chest x-ray film personally reviewed by me-possible right lower lobe infiltrate EKG tracing personally reviewed by me-normal sinus rhythm Assessment plan: - Acute COPD exacerbation in a current smoker, causing hypoxia and hypercapnia DuoNeb. Solu-Medrol. Oxygen - Acute tracheobronchitis Continue azithromycin - Acute hypoxic hypercapnic respiratory failure from COPD exacerbation Patient initially was on a BiPAP. Now down to 3 L. -No pneumonia. As per CT chest. Procalcitonin less than 0.20 Stop Zosyn -History of recurrent angioedema -Diabetes mellitus type 2 on oral hypoglycemic, uncontrolled with hyperglycemia secondary steroids Metformin 1000 mg twice daily. Follow Accu-Cheks with sliding scale - Chronic urine incontinence Oxybutynin 15 mg a day - Hyperlipidemia Lipitor 20 mg a day - Chronic nicotine dependence cigarette smoker Nicotine patch - Depression Lamictal. Invega, Lexapro, - Full code Up in chair. Add incentive spirometry. Continue current treatment plan. Past Medical History Past Medical History: Heart Failure, COPD, Diabetes Mellitus, Pneumonia Additional Past Medical History / Comment(s): pt was hospitalized in [place] 12/09/24-12/19/24 and was ventilated due to COPD and PNA. History of Any Multi-Drug Resistant Organisms: None Reported Past Surgical History: No Surgical Hx Reported Past Anesthesia/Blood Transfusion Reactions: No Reported Reaction Additional Past Anesthesia/Blood Transfusion Reaction / Comment(s): pt states she received blood once years ago without issue and had general anesthesia once without issues. Past Psychological History: Depression Smoking Status: Former smoker Past Alcohol Use History: None Reported Past Drug Use History: None Reported
[2025-01-11] MEDS: clonazePAM 1 MG TAB PO PRN (18:32)
[2025-01-11 20:08] LABS: Glucose,Whole Blood 215 mg/dL (70-110)
[2025-01-12 05:58] LABS: Glucose,Whole Blood 191 mg/dL (70-110)
--- NOTE | 2025-01-12 09:57 | P.PN ---
Progress Note - Text Progress Note Date: 01/12/25 Chief Complaint: Short of breath This is a pleasant 59-year-old patient who follows with Dr. Pérez. Chronic medical conditions include CHF, COPD, diabetes, hyperlipidemia, hypertension, depression. Home oxygen 3 L, recurrent angioedema Patient was short time and stopped smoking. Recently discharged from hospital about 10 days ago. Patient went back to start smoking. Yesterday became increasingly short of breath. Wheezing. No chills. [place] tired. Had gone to see her son. He said he looks she looks miserable. They checked a home pulse ox showing 62%. Patient sent down to [facility] and from that she was sent down here. Patient was recently admitted to [facility] where she was intubated. Does have 3 uses oxygen at home. At [facility] showed she was in hypercapnia. X-ray also suggesting pneumonia. CT angiogram was negative for PE. As she became a bit confused she was put on a BiPAP. January 11: Some improvement in shortness of breath. Congested cough. On 3 to his nasal cannula. Had 100% for lunch. Told to sit up in the chair. Incentive spirometry. No pneumonia. Only acute bronchitis. Stop Zosyn January 12: Breathing better. Has been up in chair. She feels about 50% better. Would like to stay for 1 more day. Increase activity. Stop LR. Active Medications Acetaminophen (Acetaminophen Tab 325 Mg Tab) 650 mg PO Q6HR PRN PRN Reason: Mild Pain or Fever > 100.5 Albuterol/Ipratropium (Ipratropium-Albuterol 3 Ml Neb) 3 ml INHALATION RT-Q2H PRN PRN Reason: Shortness Of Breath Or Wheezing Albuterol/Ipratropium (Ipratropium-Albuterol 3 Ml Neb) 3 ml INHALATION RT-QID [facility] Last Admin: 01/11/25 16:46 Dose: 3 ml Atorvastatin Calcium (Atorvastatin 20 Mg Tab) 20 mg PO DAILY [facility] Last Admin: 01/11/25 07:59 Dose: 20 mg Budesonide (Budesonide 1 Mg/2 Ml Nebu) 1 mg INHALATION RT-BID [facility] Last Admin: 01/11/25 09:08 Dose: 1 mg Enoxaparin Sodium (Enoxaparin 40 Mg/0.4 Ml Syringe) 40 mg SQ DAILY [facility] Last Admin: 01/11/25 07:59 Dose: 40 mg Epinephrine HCl (Epinephrine 1 Mg/Ml 1 Ml Vial) 0.3 mg IM ONCE PRN PRN Reason: Anaphylaxis Escitalopram Oxalate (Escitalopram 10 Mg Tab) 10 mg PO DAILY [facility] Last Admin: 01/11/25 07:59 Dose: 10 mg Escitalopram Oxalate (Escitalopram 20 Mg Tab) 20 mg PO DAILY [facility] Last Admin: 01/11/25 07:58 Dose: 20 mg Formoterol Fumarate (Formoterol Fumarate 20 Mcg/2 Ml Nebu) 20 mcg INHALATION RT-BID [facility] Last Admin: 01/11/25 09:08 Dose: 20 mcg Azithromycin 500 mg/ Sodium (Chloride) 250 mls @ 250 mls/hr IVPB DAILY [facility]; Protocol Stop: 01/12/25 09:59 Last Admin: 01/11/25 07:58 Dose: 250 mls/hr Piperacillin Sod/Tazobactam (Sod 3.375 gm/ Sodium Chloride) 100 mls @ 25 mls/hr IVPB Q8HR [facility]; Protocol Stop: 01/15/25 15:59 Last Admin: 01/11/25 16:38 Dose: 25 mls/hr Lactated Ringer's (Lactated Ringers) 1,000 mls @ 130 mls/hr IV .Q7H42M [facility] Last Admin: 01/11/25 16:38 Dose: Not Given Lamotrigine (Lamotrigine 100 Mg Tab) 200 mg PO DAILY [facility] Last Admin: 01/11/25 07:58 Dose: 200 mg Metformin HCl (Metformin 500 Mg Tab) 1,000 mg PO BID-W/MEALS [facility] Last Admin: 01/11/25 16:38 Dose: 1,000 mg Methylprednisolone Sodium Succinate (Methylprednisolone Sod Succi 40 Mg/Ml 1 Ml Vial) 40 mg IV Q8HR [facility] Last Admin: 01/11/25 16:38 Dose: 40 mg Miscellaneous Information (Pneumonia Protocol Utilized 1 Each Misc) 1 each PO ONCE PRN PRN Reason: Per Protocol Miscellaneous Information (Rx Info: Iv Contrast Was Given 1 Each Misc) 1 each MISCELLANE DAILY PRN PRN Reason: Per Protocol Stop: 01/13/25 10:17 Naloxone HCl (Naloxone 0.4 Mg/Ml 1 Ml Vial) 0.2 mg IV Q2M PRN PRN Reason: Opioid Reversal Nicotine (Nicotine 21mg/24hr Patch) 1 patch TRANSDERM DAILY [facility] Last Admin: 01/11/25 07:58 Dose: 1 patch Ondansetron HCl (Ondansetron 4 Mg/2 Ml Vial) 4 mg IVP Q8HR PRN PRN Reason: Nausea And Vomiting Oxybutynin Chloride (Oxybutynin 15 Mg Tab.Er.24) 15 mg PO DAILY [facility] Last Admin: 01/11/25 07:59 Dose: 15 mg Social history: Lives alone. Patient smoked for about 45 years Physical examination: VITAL SIGNS: 97.5, 77, 18, 07/31/1929 GENERAL: BMI 26.1, sitting bed, breathing improving EYES: Pupils equal. Conjunctiva jeni l. HEENT: External appearance of nose and ears normal, oral cavity grossly normal. No teeth NECK: JVD not raised; masses not palpable. HEART: First and second heart sounds are normal; no edema. LUNGS: Respiratory rate increased, diminished breath sound, ABDOMEN: Soft, nontender, liver spleen not palpable, no masses palpable. PSYCH: Alert and oriented x3; mood and affect anxious MUSCULOSKELETAL:No Clubbing/cyanosis;muscles-grossly intact INVESTIGATIONS, reviewed in the clinical context: CT chest: Large hernia containing loops of colon that extends up to the anterior upper abdomen into the mediastinum to the right of the right epicardial fat and into the right chest. No evidence of airspace disease. January 11: White count 15.5 hemoglobin 12.6 platelets 304 creatinine 0.54 procalcitonin less than 0.20 January 10: White count 16.5 hemoglobin 13.7 platelets 330 sodium 139 potassium 4.6 creatinine 0.52 blood glucose 209 ABG: [id number] PO256 pH 7.41 Chest x-ray film personally reviewed by me-possible right lower lobe infiltrate EKG tracing personally reviewed by me-normal sinus rhythm Assessment plan: - Acute COPD exacerbation in a current smoker, causing hypoxia and hypercapnia: Improving DuoNeb. Solu-Medrol. Oxygen Will switch to oral prednisone tomorrow - Acute tracheobronchitis Continue azithromycin - Acute hypoxic hypercapnic respiratory failure from COPD exacerbation Patient initially was on a BiPAP. Now down to 3 L. -No pneumonia. As per CT chest. Procalcitonin less than 0.20 Stop Zosyn -History of recurrent angioedema -Diabetes mellitus type 2 on oral hypoglycemic, uncontrolled with hyperglycemia secondary steroids Metformin 1000 mg twice daily. Follow Accu-Cheks with sliding scale - Chronic urine incontinence Oxybutynin 15 mg a day - Hyperlipidemia Lipitor 20 mg a day - Chronic nicotine dependence cigarette smoker Nicotine patch - Depression Lamictal. Invega, Lexapro, - Full code Improving. Increase activity. Switch to oral prednisone tomorrow. Hopefully discharge tomorrow Past Medical History Past Medical History: Heart Failure, COPD, Diabetes Mellitus, Pneumonia Additional Past Medical History / Comment(s): pt was hospitalized in [place] 12/09/24-12/19/24 and was ventilated due to COPD and PNA. History of Any Multi-Drug Resistant Organisms: None Reported Past Surgical History: No Surgical Hx Reported Past Anesthesia/Blood Transfusion Reactions: No Reported Reaction Additional Past Anesthesia/Blood Transfusion Reaction / Comment(s): pt states she received blood once years ago without issue and had general anesthesia once without issues. Past Psychological History: Depression Smoking Status: Former smoker Past Alcohol Use History: None Reported Past Drug Use History: None Reported
[2025-01-12 11:43] LABS: Glucose,Whole Blood 100 mg/dL (70-110)
--- NOTE | 2025-01-12 15:39 | P.PN ---
Subjective Progress Note Date: 01/12/25 This is a 59-year-old female, known history of COPD, congestive heart failure, type 2 diabetes, hypertension, depression, on home O2 as liters per minute, patient had recent evaluation in the ER for angioedema. Patient is a smoker, presented to the ER last night with worsening symptoms of shortness of breath, cough, and wheezing. Chest x-ray raised the possibility of pneumonia, however after reviewing the chest x-ray, it seems to me that there is a cavitary like lesion, hence I recommended a CT of the chest for further evaluation of that right lower lobe. Findings on the CT of the chest ruled out pneumonia, there is clearly evidence of large hernia containing loops of colon that extends up to t he anterior upper abdomen into the mediastinum to the right of the right epicardial fat and into the right chest. These are findings of hernia not findings of pneumonia. And not findings of lung abscess. Nonetheless patient is being treated for symptoms of COPD exacerbation. Apparently patient was recently in [place] and she had an episode of acute exacerbation of COPD required intubation and mechanical ventilation. When she was seen yesterday at [facility], her chest x-ray raised the possibility of pneumonia hence she was transferred to [facility]. Initially she was on BiPAP, when I saw the patient she was on nasal cannula and did not seem to be in distress. The patient is seen today January 12, 2025 in follow-up on the selective care unit. She is currently sitting up at the bedside. Awake and alert in no acute distress. Maintaining good O2 saturations in the upper 90s on 3 L/min per nasal cannula. She is afebrile. Hemodynamically stable. Glucose 100. She remains on DuoNeb inhalations, Pulmicort and Perforomist inhalations, IV Solu-Medrol. NicoDerm patch in place. Lovenox for DVT prophylaxis. Objective - Vital Signs Vital signs: Vital Signs Temp 98.1 F 01/12/25 11:35 Pulse 72 01/12/25 11:35 Resp 16 01/12/25 11:35 BP 131/78 01/12/25 11:35 Pulse Ox 98 01/12/25 11:35 FiO2 30 01/10/25 09:37 Intake & Output 01/11/25 01/12/25 01/12/25 18:59 06:59 18:59 Intake Total 760 730 Output Total 600 Balance 160 730 Weight 62.4 kg Intake: IV 20 10 Invasive Line 2 10 Invasive Line 3 10 10 Oral 740 720 Output: Urine 600 Other: Voiding Method Bedside Commode Bedside Commode Bedside Commode # Voids 1 1 1 # Bowel Movements 1 - Exam GENERAL EXAM: Alert, 59-year-old female, on 3 L/min per nasal cannula, comfortable in no apparent distress. HEAD: Normocephalic. EYES: Normal reaction of pupils, equal size. NOSE: Clear with pink turbinates. THROAT: No erythema or exudates. NECK: No masses, no JVD. CHEST: No chest wall deformity. LUNGS: Equal air entry with bilateral end expiratory wheeze. CVS: S1 and S2 normal with an audible murmur, regular rhythm. ABDOMEN: No hepatosplenomegaly, normal bowel sounds, no guarding or rigidity. SPINE: No scoliosis or deformity SKIN: No rashes CENTRAL NERVOUS SYSTEM: No focal deficits, tone is normal in all 4 extremities. EXTREMITIES: There is no peripheral edema. No clubbing, no cyanosis. Peripheral pulses are intact. - Labs CBC & Chem 7: 01/11/25 08:19 01/11/25 08:19 Labs: Abnormal Lab Results - Last 24 Hours (Table) 01/11/25 01/12/25 Range/Units 20:07 05:56 POC Glucose (mg/dL) 215 H 191 H (70-110) mg/dL Microbiology - Last 24 Hours (Table) 01/11/25 16:47 Gram Stain - Preliminary Sputum 01/10/25 09:13 Blood Culture - Preliminary Blood Assessment and Plan Assessment: Acute hypoxic respiratory failure secondary to an acute exacerbation of chronic obstructive pulmonary disease Acute on chronic hypoxic and hypercapnic respiratory failure. No evidence of pneumonia, patient has hiatal hernia as noted on CT of the chest History of angioedema secondary to PAUL inhibitor's History of type 2 diabetes Chronic urinary incontinence Tobacco dependence syndrome Dyslipidemia History of depression Plan: The patient was seen and evaluated Labs and medications reviewed Stable on 3 L nasal cannula Continue DuoNeb inhalations Continue Pulmicort and Perforomist inhalations Continue IV Solu-Medrol Continue her home medications Educated regarding smoking cessation NicoDerm patch in place Lovenox for DVT prophylaxis Titrate down the FiO2 as tolerated Increase her activity as tolerated We will continue to follow I have personally seen and examined the patient, performed the documentation and the assessment and plan as written. Number of minutes spent on the visit: 10 Dictation was produced using iList dictation software. Please excuse any grammatical, word or spelling errors.
[2025-01-12 16:21] LABS: Glucose,Whole Blood 226 mg/dL (70-110)
[2025-01-12 20:11] LABS: Glucose,Whole Blood 189 mg/dL (70-110)
[2025-01-13 03:11] VITALS: RESP 19
[2025-01-13 05:59] LABS: Glucose,Whole Blood 80 mg/dL (70-110)
[2025-01-13] MEDS: ACETAMINOPHEN TAB 325 MG TAB PO PRN (06:39)
[2025-01-13] MEDS: predniSONE 20 MG TAB PO SCH (09:14)
[2025-01-13 09:20] VITALS: BP 111/75; TEMP 98.4
[2025-01-13 11:09] LABS: Glucose,Whole Blood 128 mg/dL (70-110)
[2025-01-13 12:44] VITALS: PULSE 90
--- NOTE | 2025-01-13 18:00 | P.DS ---
Providers Date of admission: 01/10/25 10:43 Expected date of discharge: 01/13/25 Attending physician: Jaiden Bowen Consults: 01/10/25 10:43 Consult Physician Routine Consulting Provider: Curt Dela Cruz Consult Reason/Comments: copd, pneumonia Do you want consulting provider notified?: Yes Primary care physician: [facility] Course: Chief Complaint: Short of breath This is a pleasant 59-year-old patient who follows with Dr. Pérez. Chronic medical conditions include CHF, COPD, diabetes, hyperlipidemia, hypertension, depression. Home oxygen 3 L, recurrent angioedema Patient was short time and stopped smoking. Recently discharged from hospital about 10 days ago. Patient went back to start smoking. Yesterday became increasingly short of breath. Wheezing. No chills. [place] tired. Had gone to see her son. He said he looks she looks miserable. They checked a home pulse ox showing 62%. Patient sent down to [facility] and from that she was sent down here. Patient was recently admitted to [facility] where she was intubated. Does have 3 uses oxygen at home. At [facility] showed she was in hypercapnia. X-ray also suggesting pneumonia. CT angiogram was negative for PE. As she became a bit confused she was put on a BiPAP. January 11: Some improvement in shortness of breath. Congested cough. On 3 to his nasal cannula. Had 100% for lunch. Told to sit up in the chair. Incentive spirometry. No pneumonia. Only acute bronchitis. Stop Zosyn January 12: Breathing better. Has been up in chair. She feels about 50% better. Would like to stay for 1 more day. Increase activity. Stop LR. January 13: Breathing better. Some residual cough. Patient does have nebulizer at home. Takes DuoNeb. Again counseled about smoking. Labs the patient follow-up with pulmonary. Prednisone taper. Social history: Lives alone. Patient smoked for about 45 years Physical examination: VITAL SIGNS: 98.4, 98, 19, 115 x 75, 97% 3 L GENERAL: BMI 26.1, sitting bed, breathing much improved EYES: Pupils equal. Conjunctiva jeni l. HEENT: External appearance of nose and ears normal, oral cavity grossly normal. No teeth NECK: JVD not raised; masses not palpable. HEART: First and second heart sounds are normal; no edema. LUNGS: Respiratory rate normal diminished breath sound, ABDOMEN: Soft, nontender, liver spleen not palpable, no masses palpable. PSYCH: Alert and oriented x3; mood and affect anxious MUSCULOSKELETAL:No Clubbing/cyanosis;muscles-grossly intact INVESTIGATIONS, reviewed in the clinical context: CT chest: Large hernia containing loops of colon that extends up to the anterior upper abdomen into the mediastinum to the right of the right epicardial fat and into the right chest. No evidence of airspace disease. January 11: White count 15.5 hemoglobin 12.6 platelets 304 creatinine 0.54 procalcitonin less than 0.20 January 10: White count 16.5 hemoglobin 13.7 platelets 330 sodium 139 potassium 4.6 creatinine 0.52 blood glucose 209 ABG: [id number] PO256 pH 7.41 Chest x-ray film personally reviewed by me-possible right lower lobe infiltrate EKG tracing personally reviewed by me-normal sinus rhythm Assessment plan: - Acute COPD exacerbation in a current smoker, causing hypoxia and hypercapnia: Much better DuoNeb. Solu-Medrol. Oxygen Discharged on prednisone taper. DuoNeb. - Acute tracheobronchitis Continue azithromycin: Completed course - Acute hypoxic hypercapnic respiratory failure from COPD exacerbation Patient initially was on a BiPAP. Now down to 3 L. - Chronic hypoxic respiratory failure has on home oxygen 3 L -No pneumonia. As per CT chest. Procalcitonin less than 0.20 Stop Zosyn - Large thoracic hiatal hernia, chronic -History of recurrent angioedema -Diabetes mellitus type 2 on oral hypoglycemic, uncontrolled with hyperglycemia secondary steroids Metformin 1000 mg twice daily. Follow Accu-Cheks with sliding scale - Chronic urine incontinence Oxybutynin 15 mg a day - Hyperlipidemia Lipitor 20 mg a day - Chronic nicotine dependence cigarette smoker Nicotine patch - Depression Lamictal. Invega, Lexapro, - Full code Disposition: Home Past Medical History Past Medical History: Heart Failure, COPD, Diabetes Mellitus, Pneumonia Additional Past Medical History / Comment(s): pt was hospitalized in [place] 12/09/24-12/19/24 and was ventilated due to COPD and PNA. History of Any Multi-Drug Resistant Organisms: None Reported Past Surgical History: No Surgical Hx Reported Past Anesthesia/Blood Transfusion Reactions: No Reported Reaction Additional Past Anesthesia/Blood Transfusion Reaction / Comment(s): pt states she received blood once years ago without issue and had general anesthesia once without issues. Past Psychological History: Depression Smoking Status: Former smoker Past Alcohol Use History: None Reported Past Drug Use History: None Reported Plan - Discharge Summary Discharge Rx Participant: No New Discharge Prescriptions: New Ipratropium-Albuterol Nebulize [Duoneb 0.5 mg-3 mg/3 ml Soln] 3 ml INHALATION BID #90 ml predniSONE 10 mg PO DAILY #30 tab Continue Albuterol Nebulized [Ventolin Nebulized] 2.5 mg INHALATION RT-Q4H PRN PRN Reason: Shortness Of Breath Atorvastatin [Lipitor] 20 mg PO DAILY Escitalopram [Lexapro] 10 mg PO DAILY lamoTRIgine [LaMICtal] 200 mg PO DAILY metFORMIN HCL 1,000 mg PO BID Nicotine 21Mg/24Hr Patch [Habitrol] 1 patch TRANSDERM DAILY Paliperidone Palmitate [Invega Trinza] 410 mg IM Q84D Albuterol Sulfate [Ventolin HFA] 2 puff INHALATION RT-QID PRN PRN Reason: Shortness Of Breath Budesonide/Formoterol Fumarate [Symbicort 160-4.5 Mcg Inhaler] 2 puff INHALATION RT-BID EPINEPHrine (Auto Inject) [Epipen] 0.3 mg IM ONCE PRN PRN Reason: Anaphylaxis Escitalopram [Lexapro] 20 mg PO DAILY Oxybutynin Chloride [oxyBUTYnin chloride ER] 15 mg PO DAILY Discontinued amLODIPine [Norvasc] 5 mg PO DIRECTED Doxycycline Monohydrate 100 mg PO BID Discharge Medication List Albuterol Nebulized [Ventolin Nebulized] 2.5 mg INHALATION RT-Q4H PRN 12/30/24 [History] Albuterol Sulfate [Ventolin HFA] 2 puff INHALATION RT-QID PRN 12/30/24 [History] Atorvastatin [Lipitor] 20 mg PO DAILY 12/30/24 [History] Budesonide/Formoterol Fumarate [Symbicort 160-4.5 Mcg Inhaler] 2 puff INHALATION RT-BID 12/30/24 [History] EPINEPHrine (Auto Inject) [Epipen] 0.3 mg IM ONCE PRN 12/30/24 [History] Escitalopram [Lexapro] 10 mg PO DAILY 12/30/24 [History] Escitalopram [Lexapro] 20 mg PO DAILY 12/30/24 [History] Nicotine 21Mg/24Hr Patch [Habitrol] 1 patch TRANSDERM DAILY 12/30/24 [History] Oxybutynin Chloride [oxyBUTYnin chloride ER] 15 mg PO DAILY 12/30/24 [History] Paliperidone Palmitate [Invega Trinza] 410 mg IM Q84D 12/30/24 [History] lamoTRIgine [LaMICtal] 200 mg PO DAILY 12/30/24 [History] metFORMIN HCL 1,000 mg PO BID 12/30/24 [History] Ipratropium-Albuterol Nebulize [Duoneb 0.5 mg-3 mg/3 ml Soln] 3 ml INHALATION BID #90 ml 01/13/25 [Rx] predniSONE 10 mg PO DAILY #30 tab 01/13/25 [Rx] Follow up Appointment(s)/Referral(s): Curt Dela Cruz MD [STAFF PHYSICIAN] - 1 Week (Staff at the office is currently unable to make a call. Please call and schedule your follow up appointment. ) Jamarcus Pérez MD [Primary Care Provider] - 1-2 days () Patient Instructions/Handouts: COPD (Chronic Obstructive Pulmonary Disease) (DC), Hypoxia (GEN), Pneumonia (DC) Activity/Diet/Wound Care/Special Instructions: Patient needs a glucometer at discharge managing non insulin dependent diabetes mellitus. She should check her blood sugar once per day Discharge Disposition: HOME WITH HOME HEALTH SERVICES
--- NOTE | 2025-01-14 04:03 | PN ---
PROGRESS NOTE SUBJECTIVE: This is a patient who is 59 years of age. She was admitted back on January 10. She was admitted with a diagnosis of pneumonia and respiratory failure. Currently, she is seen in room 364. She is on 3 L nasal cannula. She is not receiving any IV fluids. The patient is hoping to be discharged home later today. Clinically, she is doing well. No acute distress. No respiratory distress. She is awake and alert. PHYSICAL EXAMINATION: CURRENT VITAL SIGNS: Include temperature 98.4, heart rate 90, respiratory rate 19. Blood pressure 111/75, mean 87 and 3 L saturation 97%. GENERAL: Appears in no acute distress. No respiratory distress. HEENT: Examination is grossly unremarkable. NECK: Supple. Full range of motion. No adenopathy. Neck veins are flat. CARDIOVASCULAR: Examination reveals regular rhythm and rate. S1, S2 normal. No S3, S4, or murmur. LUNGS: Reveal scattered expiratory rhonchi. No wheezes or crackles. Breath sounds equal. ABDOMEN: Soft. Bowel sounds are heard. No masses or tenderness. EXTREMITIES: Intact. No cyanosis, clubbing, or edema. SKIN: Without rash. NEUROLOGIC: Examination is brief, but nonfocal. LABORATORY DATA: Today only includes a glucose of 128. ASSESSMENT: 1. Acute hypoxemic respiratory failure secondary to chronic obstructive pulmonary disease exacerbation. 2. Acute on chronic hypoxemic hypercapnic respiratory failure, without evidence of pneumonia. The patient does have a hard hiatal hernia seen on CT scan. 3. History of angioedema secondary to PAUL inhibitors. 4. History of type 2 diabetes. 5. Chronic urinary incontinence. 6. Tobacco dependence syndrome. 7. Dyslipidemia. 8. History of depression. PLAN: The patient is doing well. She continues on nasal O2 at 3 L. She is hoping to be discharged sometime later today. She continues on DuoNebs, and Solu-Medrol. Solu- Medrol could be converted to prednisone. She also continues on budesonide and Perforomist, which could be converted to Symbicort. Labs, x-rays, and medications are reviewed. No additional recommendations are made. From the pulmonary perspective, she is stable for discharge. MMODL / IJN: [id number] /
== END 2025-01-13 13:20 | disposition home or self-care (01) | DRG 190 ==
LOC: EC 08:07 → 3SCARD 10:43
PROVIDERS: ADMIT Hospitalist; ATTEND Hospitalist
DX: J44.0 Chronic obstructive pulmonary disease with (acute) lower respiratory infection (principal); J96.21 Acute and chronic respiratory failure with hypoxia; J96.22 Acute and chronic respiratory failure with hypercapnia; I11.0 Hypertensive heart disease with heart failure; E11.65 Type 2 diabetes mellitus with hyperglycemia; J44.1 Chronic obstructive pulmonary disease with (acute) exacerbation; F32.A Depression, unspecified; I50.9 Heart failure, unspecified; Z99.81 Dependence on supplemental oxygen; J20.9 Acute bronchitis, unspecified; F17.210 Nicotine dependence, cigarettes, uncomplicated; K44.9 Diaphragmatic hernia without obstruction or gangrene; R32 Unspecified urinary incontinence; E78.5 Hyperlipidemia, unspecified; Z79.51 Long term (current) use of inhaled steroids; Z79.84 Long term (current) use of oral hypoglycemic drugs; Z79.899 Other long term (current) drug therapy; Z88.8 Allergy status to other drugs, medicaments and biological substances
CPT/HCPCS: 36415; 36600; 71045; 71046; 71260; 80053; 82805; 83605; 83735; 84145; 85025; 85610; 85730; 87040; 87070; 87205; 87449; 93005; 94640; 94760; 96365; 96366; 96367; 96375; 96376; 99285